=== PATIENT | female | born 2000 | race Caucasian/White ===

== ENCOUNTER 2020-09-06 11:21 | Emergency (ER) | payer OTHER ==
[~2020-09-06] VITALS: Ht 154.9 cm; Wt 47.6 kg
[2020-09-06] MEDS ORDERED: DICLOFENAC POTA50 MG PO (15:02)
== END 2020-09-06 15:11 | disposition home or self-care (01) ==
LOC: ER 11:21
DX: M79.672 Pain in left foot (principal)

== ENCOUNTER → 2021-02-27 | Emergency (ER) | payer OTHER ==
[~2021-02-27] VITALS: Ht 154.9 cm; Wt 47.6 kg
[~2021-02-27] MED LIST: DICLOFENAC POTA50 MG PO
== END | disposition home or self-care (01) ==
LOC: ER 13:49
DX: M25.532 Pain in left wrist (principal)

== ENCOUNTER 2024-09-09 09:11 | Emergency (ER) | payer OTHER ==
[~2024-09-09] VITALS: Ht 154.9 cm; Wt 49.0 kg
[2024-09-09 12:26] LABS: HEMATOCRIT 40.3 % (36.0-45.00); HEMOGLOBIN 13.6 g/dL (12.0-15.00); MEAN CELL VOLUME 85.7 fL (80.00-100.00); MEAN CORPUSCULAR HEMOGLOBIN 28.8 pg (27.00-32.0); MEAN CORPUSCULAR HGB CONC 33.7 g/dl (32.0-36.0); PLATELET COUNT 310 K/uL (150-450); RED CELL DISTRIBUTION WIDTH 13.8 % (11.5-14.5)
== END 2024-09-09 14:04 | disposition home or self-care (01) ==
LOC: ER 09:14
PROVIDERS: General Practice
DX: R07.0 Pain in throat (principal); Z20.822 Contact with and (suspected) exposure to COVID-19